=== PATIENT | female | born 1995 | race Caucasian/White ===

== ENCOUNTER 2024-04-22 22:54 | Emergency (ER) | payer BC ==
[2024-04-22 23:09] VITALS: BP 99/56; PULSE 74
[2024-04-22] MEDS: Take Home: LORazepam 0.5 MG Tab, 2 Tab Pack PO ONE (23:43)
== END 2024-04-22 23:48 | disposition home or self-care (01) ==
LOC: CC.ED 22:54
DX: F41.9 Anxiety disorder, unspecified (principal); Z87.891 Personal history of nicotine dependence; Z91.018 Allergy to other foods
CPT/HCPCS: 99283; A9270